=== PATIENT | male | born 1955 | race Caucasian/White ===

== ENCOUNTER → 2019-09-24 | Outpatient (CLI) | payer MEDICARE ==
--- NOTE | 2019-09-24 22:35 | PN ---
PROGRESS NOTE DATE OF SERVICE: 09/24/2019 This is a very pleasant 64-year-old gentleman who has a history of hyperlipidemia, gout, hypertension, coronary artery disease, atrial fibrillation, anticoagulated with Eliquis. He also has a history of obstructive sleep apnea and follows with Dr. Torres here in the sleep center. He has moderate to severe obstructive sleep apnea with an AHI of 27, worse during REM sleep. He was last seen in May 2015 at which time he was given a loaner BiPAP machine by Dr. Torres. The settings were programmed at 14/10 cm of water. He was given an AirFit P10 large mask with chin strap and was encouraged regarding weight loss. He has been doing fairly well over the past 5 years. However, approximately 1 month ago his BiPAP machine broke. They had taken it to [facility] and was evaluated and was told the mother port was broken and there was no way to repair it. He is seen here today hoping to get a new one ordered. He is now 64 years old and on Medicare. He has lost weight since the initial evaluation. He has been as high as 443 pounds and is weighing 341 pounds today. In the interim, he had undergone 2 coronary stent placements. He had been tolerating the BiPAP mask quite well and was quite compliant with it and is feeling he needs to get one as soon as possible. PHYSICAL EXAM: A pleasant 64-year-old gentleman, alert, oriented, no acute distress. Vital signs revealed blood pressure 137/88, heart rate 106, respirations 16, temperature is 98.3. He is 98% O2 saturation on room air. He is 5 feet 7 inches tall. He weighs 341 pounds. Neck circumference is 20 inches. BMI is 62.6. Current [place] Sleepiness Scale is score of 8. His head is normocephalic. Sclerae anicteric. There is crowding in the posterior pharynx. His neck is short, supple. Trachea midline. His lungs are clear anterior and posteriorly. Heart is regular S1, S2. Abdomen is obese, soft, nontender. Bowel sounds are present. There is trace peripheral edema. No clubbing. No cyanosis. Peripheral pulses are intact. CURRENT MEDICATIONS: Include omeprazole 40 mg daily, Coreg 12.5 mg b.i.d., Imdur 30 mg daily, loratadine 10 mg daily, simvastatin 40 mg daily, allopurinol 300 mg daily, Plavix 75 mg daily, Eliquis 5 mg twice daily. IMPRESSION: 1. Obstructive sleep apnea with an apnea-hypopnea index of 21, worse during REM, successfully treated with BiPAP 14/10 cm of water. 2. Morbid obesity. Current weight 341 pounds with a BMI of 62.6. 3. Coronary artery disease with previous stent placement. 4. Hyperlipidemia. 5. Gout. 6. Hypertension. 7. Chronic obstructive pulmonary disease. 8. Asthma. PLAN: The patient's case was reviewed and discussed with Dr. Torres. The patient did have a previous sleep study and is tolerating the BiPAP at a pressure of 14/10 cm of water well. We will attempt to order him a new BiPAP machine in the hopes that he will remain compliant and able to continue on the device. We will plan for the same current studies. He is again educated regarding the importance of weight loss and will follow up with Dr. Torres in the Sleep Center as scheduled. I, the cosigning physician, performed a history and physical examination on the patient. Lung sounds are clear. O2 saturation 98% on room air. I discussed the assessment and plan of care with my nurse practitioner, Daya Chand. I attest to the above progress note as dictated by her. MMODL / IJN: [id number] /
== END | disposition home or self-care (01) ==
LOC: SLEEP 14:44
PROVIDERS: ATTEND Internal Medicine Critical Care Medicine
DX: G47.33 Obstructive sleep apnea (adult) (pediatric) (principal); E66.01 Morbid (severe) obesity due to excess calories; I25.10 Atherosclerotic heart disease of native coronary artery without angina pectoris; E78.5 Hyperlipidemia, unspecified; M10.9 Gout, unspecified; I10 Essential (primary) hypertension; J44.9 Chronic obstructive pulmonary disease, unspecified; J45.909 Unspecified asthma, uncomplicated; Z68.44 Body mass index [BMI] 60.0-69.9, adult; Z99.89 Dependence on other enabling machines and devices; Z79.01 Long term (current) use of anticoagulants
CPT/HCPCS: 99211

== ENCOUNTER → 2020-03-03 | Outpatient (CLI) | payer MEDICARE ==
--- NOTE | 2020-03-03 15:15 | XR ---
Lumbar spine HISTORY: M 54.16 3 views the lumbar spine There is multilevel spondylosis. Loss of disc height is present at the intervertebral levels. Scleros is present in the posterior elements. Lumbar vertebral bodies show preserved height, alignment, bone mineralization. Vascular calcifications present in the aortoiliac distribution. Metallic coils are al so present on the frontal view. IMPRESSION: Degenerative disc disease and facet arthropathy.
== END | disposition home or self-care (01) ==
LOC: RADXRMAIN 13:18
PROVIDERS: ATTEND Family Medicine
DX: M51.16 Intervertebral disc disorders with radiculopathy, lumbar region (principal); M47.26 Other spondylosis with radiculopathy, lumbar region
CPT/HCPCS: 72100

== ENCOUNTER 2021-11-03 12:41 | Emergency (ER) | payer MEDICARE, BC ==
[2021-11-03] MEDS ORDERED: ONDANSETRON 4 MG/2 ML VIAL IVP STA ×2 (13:27→14:22)
[2021-11-03] MEDS ORDERED: PANTOPRAZOLE 40 MG/10 ML VIAL IVP STA (13:27)
[2021-11-03] MEDS ORDERED: SODIUM CHLORIDE 0.9% 1,000 ML IV ONE (13:27)
--- NOTE | 2021-11-03 13:30 | ED ---
General Adult HPI - General Chief complaint: Nausea/Vomiting/Diarrhea Stated complaint: vomiting Time Seen by Provider: 11/03/21 12:45 Source: patient, family, RN notes reviewed, old records reviewed Mode of arrival: ambulatory - History of Present Illness Initial comments: This is a 66-year-old male who presents emergency department for vomiting. Patient states she started vomiting snf through breakfast. Patient denies any abdominal pain. Patient states he has heartburn abnormalities been vomiting. Patient denies any difficulty breathing shortness of breath per pat ient denies any fever chills or cough per patient denies any headache patient denies numbness weakness. Patient denies any back pain. Patient denies any dysuria hematuria urinary frequency. Patient states remains nauseated. - Related Data Home Medications Medication Instructions Recorded Confirmed Albuterol Nebulized [Ventolin 2.5 mg INHALATION RT-Q4H PRN 11/03/21 11/03/21 Nebulized] Amitriptyline HCl 25 - 50 mg PO HS 11/03/21 11/03/21 Apixaban [Eliquis] 5 mg PO BID 11/03/21 11/03/21 Carvedilol [Coreg] 12.5 mg PO BID 11/03/21 11/03/21 Colchicine [Mitigare] 0.6 mg PO BID PRN 11/03/21 11/03/21 Isosorbide Mononitrate ER [Imdur] 30 mg PO DAILY 11/03/21 11/03/21 Loratadine 10 mg PO DAILY 11/03/21 11/03/21 Nitroglycerin Sl Tabs [Nitrostat] 0.4 mg SUBLINGUAL Q5M PRN 11/03/21 11/03/21 Pantoprazole Sodium [Protonix] 40 mg PO DAILY 11/03/21 11/03/21 Sertraline HCl [Zoloft] 25 mg PO DAILY 11/03/21 11/03/21 Simvastatin [Zocor] 40 mg PO HS 11/03/21 11/03/21 allopurinoL [Zyloprim] 300 mg PO HS 11/03/21 11/03/21 traMADol HCL [Ultram] 50 - 100 mg PO Q6HR PRN 11/03/21 11/03/21 Allergies Allergy/AdvReac Type Severity Reaction Status Date / Time Penicillins Allergy Rash/Hives/ Verified 11/03/21 14:09 nausea silver nitrate AdvReac Hallucinati Verified 11/03/21 14:08 ons Review of Systems ROS Statement: Those systems with pertinent positive or pertinent negative responses have been documented in the HPI. ROS Other: All systems not noted in ROS Statement are negative. Past Medical History Past Medical History: Atrial Fibrillation, Chest Pain / Angina, COPD, Hyperlipidemia, Hypertension, Myocardial Infarction ([place]), Sleep Apnea/CPAP/BIPAP History of Any Multi-Drug Resistant Organisms: None Reported Past Surgical History: Heart Catheterization With Stent, Hernia Repair Past Psychological History: No Psychological Hx Reported Smoking Status: Former smoker Past Alcohol Use History: None Reported Past Drug Use History: None Reported General Exam - General Exam Comments Initial Comments: GENERAL: Patient is well-developed and well-nourished. Patient is nontoxic and well- hydrated and is in mild distress. ENT: Neck is soft and supple. No significant lymphadenopathy is noted. Oropharynx is clear. Moist mucous membranes. Neck has full range of motion without eliciting any pain. EYES: The sclera were anicteric and conjunctiva were pink and moist. Extraocular movements were intact and pupils were equal round and reactive to light. Eyel ids were unremarkable. PULMONARY: Unlabored respirations. Good breath sounds bilaterally. No audible rales rhonchi or wheezing was noted. CARDIOVASCULAR: Patient is tachycardic and has an irregular rhythm. ABDOMEN: Soft and nontender with normal bowel sounds. SKIN: Skin is clear with no lesions or rashes and otherwise unremarkable. NEUROLOGIC: Patient is alert and oriented x3. Cranial nerves II through XII are grossly intact. Motor and sensory are also intact. Normal speech, volume and content. Symmetrical smile. MUSCULOSKELETAL: Normal extremities with adequate strength and full range of motion. LYMPHATICS: No significant lymphadenopathy is noted PSYCHIATRIC: Normal psychiatric evaluation. Course Vital Signs 11/03/21 11/03/21 12:42 14:40 Temperature 97.1 F L Pulse Rate 109 H 99 Respiratory 20 18 Rate Blood Pressure 141/93 O2 Sat by Pulse 98 98 Oximetry Medical Decision Making - Medical Decision Making EKG shows atrial fibrillation with rapid ventricular response at 140 bpm QRS is 92 QT interval 312 QTC is 380. Patient's EKG shows no ST segment elevation or depression. Patient was given 2 doses of Zofran emergency department was feeling considerably better. Patient was also given a liter of fluid. I back into reevaluate the patient has abdomen was nontender and he was no longer nauseated. Patient complains this time. - Lab Data Result diagrams: 11/03/21 13:35 11/03/21 13:35 Lab Results 11/03/21 11/03/21 Range/Units 13:35 13:35 WBC 8.6 (3.8-10.6) k/uL RBC 5.10 (4.30-5.90) m/uL Hgb 16.0 (13.0-17.5) gm/dL Hct 48.7 (39.0-53.0) % MCV 95.4 (80.0-100.0) fL MCH 31.4 (25.0-35.0) pg MCHC 32.9 (31.0-37.0) g/dL RDW 13.9 (11.5-15.5) % Plt Count 325 (150-450) k/uL MPV 7.1 Neutrophils % 80 % Lymphocytes % 12 % Monocytes % 5 % Eosinophils % 1 % Basophils % 0 % Neutrophils # 6.9 (1.3-7.7) k/uL Lymphocytes # 1.0 (1.0-4.8) k/uL Monocytes # 0.5 (0-1.0) k/uL Eosinophils # 0.1 (0-0.7) k/uL Basophils # 0.0 (0-0.2) k/uL Sodium 137 (137-145) mmol/L Potassium 4.6 (3.5-5.1) mmol/L Chloride 106 (98-107) mmol/L Carbon Dioxide 25 (22-30) mmol/L Anion Gap 6 mmol/L BUN 18 (9-20) mg/dL Creatinine 1.05 (0.66-1.25) mg/dL Est GFR (CKD-EPI)AfAm 84 (>60 ml/min/1.73 sqM) Est GFR (CKD-EPI)NonAf 73 (>60 ml/min/1.73 sqM) Glucose 99 (74-99) mg/dL Calcium 8.6 (8.4-10.2) mg/dL Total Bilirubin 1.2 (0.2-1.3) mg/dL AST 28 (17-59) U/L ALT 22 (4-49) U/L Alkaline Phosphatase 101 (38-126) U/L Total Protein 7.2 (6.3-8.2) g/dL Albumin 3.8 (3.5-5.0) g/dL Disposition Clinical Impression: Acute vomiting Disposition: HOME SELF-CARE Condition: Good Instructions (If sedation given, give patient instructions): Acute Nausea and Vomiting (ED) Additional Instructions: Patient should take Zofran as prescribed Is patient prescribed a controlled substance at d/c from ED?: No Referrals: Kain Maldonado MD [Primary Care Provider] - 1-2 days Time of Disposition: 14:44
[2021-11-03 14:00] LABS: Basophils % (A) 0 %; Eosinophils # (A) 0.1 k/uL (0-0.7); Eosinophils % (A) 1 %; HCT 48.7 % (39.0-53.0); Lymphocytes % (A) 12 %; MCH 31.4 pg (25.0-35.0); MCHC 32.9 g/dL (31.0-37.0); MCV 95.4 fL (80.0-100.0); Mean Platelet Volume 7.1; Monocytes # (A) 0.5 k/uL (0-1.0); Monocytes % (A) 5 %; Neutrophils # (A) 6.9 k/uL (1.3-7.7); Neutrophils % (A) 80 %; Platelet Count 325 k/uL (150-450); RDW 13.9 % (11.5-15.5); WBC 8.6 k/uL (3.8-10.6)
[2021-11-03 14:03] LABS: Albumin 3.8 g/dL (3.5-5.0); Calcium 8.6 mg/dL (8.4-10.2); Total Bilirubin 1.2 mg/dL (0.2-1.3); Total Protein 7.2 g/dL (6.3-8.2)
[2021-11-03 14:04] LABS: Potassium 4.6 mmol/L (3.5-5.1)
[2021-11-03 14:40] VITALS: RESP 18
[2021-11-03] MEDS ORDERED: ONDANSETRON 4 MG ODT STARTER PACK 2 TAB BTL PO STA (14:44)
[2021-11-03 14:58] VITALS: BP 132/93; PULSE 100; TEMP 98.4
== END 2021-11-03 14:57 | disposition home or self-care (01) ==
LOC: EC 12:41
DX: R11.10 Vomiting, unspecified (principal); I48.91 Unspecified atrial fibrillation; E78.5 Hyperlipidemia, unspecified; I10 Essential (primary) hypertension; J44.9 Chronic obstructive pulmonary disease, unspecified; I25.2 Old myocardial infarction; Z79.01 Long term (current) use of anticoagulants; Z88.0 Allergy status to penicillin; Z87.891 Personal history of nicotine dependence
CPT/HCPCS: 99284; 96374; 96375; 96376; 96361; 36415; 93005; 80053; 85025; J2405; S0119; C9113

== ENCOUNTER → 2022-12-23 | Outpatient (CLI) | payer MEDICARE ==
--- NOTE | 2022-12-24 01:23 | CA ---
Transthoracic Echo Report Name: Homer Trimble Age: 67 Gender: M : 1955 Exam Date: 12/23/2022 15:18 Exam Location: [facility] Ht (in): 68 Wt (lb): 350 Ordering Physician: Kain Maldonado MD Attending/Referring Phys: Abbey Alfredo M[employer]r Helper Procedure CPT: Indications: I31.39 OTHER PERICARDIAL EFFUSION (NONINFLAMMATORY Cardiac Hx: Technical Quality: Very technically difficult study Contrast 1: Lumason Total Dose (mL): 4 Contrast 2: Total Dose (mL): MEASUREMENTS (Male / Female) Normal Values 2D ECHO LV Diastolic Diameter PLAX 3.5 cm 4.2 - 5.9 / 3.9 - 5.3 cm LV Systolic Diameter PLAX 2.5 cm IVS Diastolic Thickness 1.5 cm 0.6 - 1.0 / 0.6 - 0.9 cm LVPW Diastolic Thickness 1.6 cm 0.6 - 1.0 / 0.6 - 0.9 cm LV Relative Wall Thickness 0.9 M-MODE Aortic Root Diameter MM 3.1 cm LA Systolic Diameter MM 3.8 cm LA Ao Ratio MM 1.2 DOPPLER LVOT Peak Velocity 73.9 cm/s LVOT Peak Gradient 2.2 mmHg LVOT Velocity Time Integral 13.5 cm TR Peak Velocity 222.3 cm/s TR Peak Gradient 19.8 mmHg Right Ventricular Systolic Press 24.5 mmHg FINDINGS Left Ventricle Moderately increased left ventricular wall thickness. Reduced global left ventricular systolic function. Left ventricular ejection fraction is estimated at 45-50 %. Right Ventricle Normal right ventricular size and function. Right ventricular systolic pressure within normal limits. Right Atrium Normal right atrial size. Left Atrium Normal left atrial size. Mitral Valve Mitral valve not well visualized. Mild mitral regurgitation. Aortic Valve Aortic valve not well visualized. No aortic valve stenosis or regurgitation. Tricuspid Valve Mild tricuspid regurgitation. Pulmonic Valve Pulmonic valve not well visualized. Pericardium Loculated pericardial effusion. Mild pericardial effusion near the right ventricle and atrium. A little bit more effusion noted near the left ventricle and left atrium. Aorta Normal size aortic root and proximal ascending aorta. CONCLUSIONS Moderate increased left ventricular wall thickness Left ventricular ejection fraction 45-50% RVSP 24 Mild mitral regurgitation Mild pericardial effusion without any diastolic collapse, no evidence of cardiac tamponade. Previewed by: Dr. Jose Montanez DO (Electronically Signed) Final Date: 24 Dec 2022 01:22
== END | disposition home or self-care (01) ==
LOC: RADECHMAIN 15:09
PROVIDERS: ATTEND Family Medicine
DX: I34.0 Nonrheumatic mitral (valve) insufficiency (principal); I31.39 Other pericardial effusion (noninflammatory)
CPT/HCPCS: C8929; Q9950; 93306

== ENCOUNTER → 2024-03-21 | Outpatient (CLI) | payer MEDICARE ==
[2024-05-03 11:54] LABS: Cryptosporidium Antigen Negative (Negative)
== END | disposition home or self-care (01) ==
LOC: LABPRL 07:23
PROVIDERS: ATTEND Nurse Practitioner Adult Health
DX: R19.7 Diarrhea, unspecified (principal)
CPT/HCPCS: 87045; 87046; 87328; 87329; 87338

== ENCOUNTER 2024-04-11 19:18 | Emergency (ER) | payer MEDICARE, OTHER ==
--- NOTE | 2024-04-11 19:35 | ED ---
Abdominal Pain HPI - General Source: patient, RN notes reviewed <Ivana Holloway - Last Filed: 04/11/24 19:33> - General Limitations: no limitations - History of Present Illness MD Complaint: abdominal pain -: month(s) Location: diffuse Radiation: none Migration to: periumbilical Severity: moderate Quality: cramping, aching Consistency: intermittent Improves With: nothing Worsens With: nothing Associated Symptoms: nausea, vomiting, constipation <Aba Parikh - Last Filed: 04/18/24 06:08> - General Stated Complaint: GI issues Time Seen by Provider: 04/11/24 19:30 - History of Present Illness Initial Comments: Quick [id number] male presents emergency department chief complaint of nausea, vomiting, abdominal pain that has been worsening over the past few days. Patient is followed with a office executive and is being evaluated for this. States that he has been feeling constipated with last full bowel movement being over 1 week ago. (Ivana Holloway) Patient is a 69-year-old man here to have evaluation of a constellation of symptoms that been going on since end of December/early January. The patient does see office executive Dr. Canas out of [facility]. He followed in January and 2 weeks ago was sent for gastric emptying study. They do not have the results of this yet. The patient complains of diffuse abdominal pains that move throughout the abdomen, sometimes all across the lower abdomen sometimes across the upper abdomen. He has vomiting daily. He has been told that he has achalasia and had been given Reglan in January but stopped taking this after 2 days due to side effects. Patient complains that he has had constipation going on for a number of days to a week with only small bowel movement. No weight loss reported (Aba Parikh) - Related Data Home Medications Medication Instructions Recorded Confirmed Albuterol Nebulized [Ventolin 2.5 mg INHALATION RT-Q4H PRN 11/03/21 11/03/21 Nebulized] Amitriptyline HCl 25 - 50 mg PO HS 11/03/21 11/03/21 Apixaban [Eliquis] 5 mg PO BID 11/03/21 11/03/21 Colchicine [Mitigare] 0.6 mg PO BID PRN 11/03/21 11/03/21 Isosorbide Mononitrate ER [Imdur] 30 mg PO DAILY 11/03/21 11/03/21 Loratadine 10 mg PO DAILY 11/03/21 11/03/21 Nitroglycerin Sl Tabs [Nitrostat] 0.4 mg SUBLINGUAL Q5M PRN 11/03/21 11/03/21 Pantoprazole Sodium [Protonix] 40 mg PO DAILY 11/03/21 11/03/21 Sertraline HCl [Zoloft] 25 mg PO DAILY 11/03/21 11/03/21 Simvastatin [Zocor] 40 mg PO HS 11/03/21 11/03/21 allopurinoL [Zyloprim] 300 mg PO HS 11/03/21 11/03/21 carvediloL [Coreg] 12.5 mg PO BID 11/03/21 11/03/21 traMADol HCL [Ultram] 50 - 100 mg PO Q6HR PRN 11/03/21 11/03/21 Allergies Allergy/AdvReac Type Severity Reaction Status Date / Time Penicillins Allergy Rash/Hives/ Verified 11/03/21 14:09 nausea atorvastatin [From Lipitor] AdvReac Unknown Verified 04/11/24 19:56 silver nitrate AdvReac Hallucinati Verified 11/03/21 14:08 ons Review of Systems ROS Other: All systems not noted in ROS Statement are negative. <Ivana Holloway - Last Filed: 04/11/24 19:33> ROS Other: All systems not noted in ROS Statement are negative. Constitutional: Denies: fever, chills Respiratory: Denies: cough, dyspnea Cardiovascular: Denies: chest pain, palpitations Gastrointestinal: Reports: abdominal pain, nausea, vomiting, constipation. Denies: hematemesis, melena, hematochezia Genitourinary: Denies: dysuria, hematuria Musculoskeletal: Denies: back pain Skin: Denies: rash Neurological: Denies: headache, weakness <Aba Parikh - Last Filed: 04/18/24 06:08> ROS Statement: Those systems with pertinent positive or pertinent negative responses have been documented in the HPI. Past Medical History Past Medical History: Atrial Fibrillation, Chest Pain / Angina, COPD, Hy perlipidemia, Hypertension, Myocardial Infarction ([place]), Sleep Apnea/CPAP/BIPAP History of Any Multi-Drug Resistant Organisms: None Reported Past Surgical History: Heart Catheterization With Stent, Hernia Repair Past Psychological History: No Psychological Hx Reported Smoking Status: Former smoker Past Alcohol Use History: None Reported Past Drug Use History: None Reported <Ivana Holloway - Last Filed: 04/11/24 19:33> General Exam <Ivana Holloway - Last Filed: 04/11/24 19:33> Limitations: no limitations General appearance: alert, in no apparent distress Head exam: Present: atraumatic, normocephalic Eye exam: Present: normal appearance. Absent: scleral icterus, conjunctival injection ENT exam: Present: normal oropharynx Neck exam: Present: normal inspection Respiratory exam: Present: normal lung sounds bilaterally. Absent: respiratory distress, wheezes, rales, rhonchi, stridor, accessory muscle use Cardiovascular Exam: Present: regular rate, normal rhythm, normal heart sounds. Absent: systolic murmur, diastolic murmur, rubs, gallop GI/Abdominal exam: Present: soft. Absent: distended, tenderness, guarding, rebound, rigid, mass Extremities exam: Present: normal inspection, normal capillary refill. Absent: pedal edema, calf tenderness Back exam: Present: normal inspection. Absent: CVA tenderness (R), CVA tenderness (L) Neurological exam: Present: alert Skin exam: Present: warm, dry, intact, normal color. Absent: rash <Aba Parikh - Last Filed: 04/18/24 06:08> - General Exam Comments Initial Comments: Visual Physical Exam Vital signs reviewed General: Well-appearing, nontoxic, no acute distress. Head: Normocephalic, atraumatic Eyes: PERRLA, EOMI ENT: Airway patent Chest: Nonlabored breathing Skin: No visual rash, normal skin tone Neuro: Alert and oriented 3 Musculoskeletal: No gross abnormalities (Jewel,Ivana) Course Vital Signs 04/11/24 04/11/24 04/12/24 19:51 23:59 02:36 Temperature 97.9 F 98.2 F 98.0 F Pulse Rate 111 H 101 H 100 Respiratory 20 18 16 Rate Blood Pressure 90/56 140/87 114/80 O2 Sat by Pulse 99 98 99 Oximetry Medical Decision Making <Ivana Holloway - Last Filed: 04/11/24 19:33> - Lab Data Result diagrams: 04/11/24 22:54 04/11/24 22:54 <Aba Parikh - Last Filed: 04/18/24 06:08> - Medical Decision Making I completed the quick note portion of this chart signed Ivana Holloway PA-C (Ivana Holloway) The patient had CT scan of the abdomen and pelvis that I interpreted to show presence of achalasia, with the esophagus being filled with food material. Was pt. sent in by a medical professional or institution ([facility], [employer], urgent care, hospital, or usp...) When possible be specific @ -[No] Did you speak to anyone other than the patient for history (EMS, parent, family, police, friend...)? What history was obtained from this source @ -[The patient's did give extensive history Did you review nursing and triage notes (agree or disagree)? Why? @ -[I reviewed and agree with nursing and triage notes] Were old charts reviewed (outside hosp., previous admission, EMS record, old EKG, old radiological studies, urgent care reports/EKG's, usp records)? Report findings @ -[No old charts were reviewed] Differential Diagnosis (chest pain, altered mental status, abdominal pain women, abdominal pain men, vaginal bleeding, weakness, fever, dyspnea, syncope, h eadache, dizziness, GI bleed, back pain, seizure, CVA, palpatations, mental health, musculoskeletal)? @ -[Differential Abdominal Pain Men: Appendicitis, cholecystitis, diverticulosis, ischemic bowel, pancreatitis, hepatitis, UTI, gastroenteritis, AAA, incarcerated hernia, bowel obstruction, constipation, inflammatory bowel, hepatitis, peptic ulcer disease, splenic infarction, perforated viscus, testicular torsion, this is not meant to be an all-inclusive list EKG interpreted by me (3pts min.). @ -[As above] X-rays interpreted by me (1pt min.). @ -[None done] CT interpreted by me (1pt min.). @ -[I interpreted as above U/S interpreted by me (1pt. min.). @ -[None done] What testing was considered but not performed or refused? (CT, X-rays, U/S, labs)? Why? @ -[None] What meds were considered but not given or refused? Why? @ -[None] Did you discuss the management of the patient with other professionals (professionals i.e. Dr., PA, [employer], lab, RT, psych nurse, social services designee, dock or pier laborer, everton acher, hearing officer, medical case manager)? Give summary @ -[No] Was smoking cessation discussed for >3mins.? @ -[No] Was critical care preformed (if so, how long)? @ -[No] Were there social determinants of health that impacted care today? How? (Homelessness, low income, unemployed, alcoholism, drug addiction, transportation, low edu. Level, literacy, decrease access to med. care, intermediate, rehab)? @ -[No] Was there de-escalation of care discussed even if they declined (Discuss DNR or withdrawal of care, Hospice)? DNR status @ -[No] What co-morbidities impacted this encounter? (DM, HTN, Smoking, COPD, CAD, Cancer, CVA, ARF, Chemo, Hep., AIDS, mental health diagnosis, sleep apnea, morbid obesity)? @ -[Achalasia Was patient admitted / discharged? Hospital course, mention meds given and route, prescriptions, significant lab abnormalities, going to OR and other pertinent info. @ -[Patient is 69-year-old man with history of achalasia. The patient does appear to have extensive food impaction associated with the achalasia. I discussed treatment options with the patient and his and was in fact going to transfer the patient to be seen by his office executive Dr. Shane jones and had started making arrangements when I was informed that they instead wanted to go home and follow-up in the clinic. This does seem acceptable as the patient currently not in distress and this is chronic condition. Discussed the appropriate follow-up as well as return parameters. Undiagnosed new problem with uncertain prognosis? @ -[No] Drug Therapy requiring intensive monitoring for toxicity (Heparin, Nitro, Insulin, Cardizem)? @ -[No] Were any procedures done? @ -[No] Diagnosis/symptom? @ -[Achalasia, acute on chronic Acute, or Chronic, or Acute on Chronic? @ -[Acute on chronic Uncomplicated (without systemic symptoms) or Complicated (systemic symptoms)? @ -[Uncomplicated Side effects of treatment? @ -[No] Exacerbation, Progression, or Severe Exacerbation? @ -[No] Poses a threat to life or bodily function? How? (Chest pain, [place], [place], pneumonia, PE, COPD, DKA, ARF, appy, cholecystitis, CVA, Diverticulitis, Homicidal, Suicidal, threat to staff... and all critical care pts) @ -[No] (Aba aPrikh) - Lab Data Lab Results 04/11/24 04/11/24 04/11/24 Range/Units 22:54 22:54 22:54 WBC 8.0 (3.8-10.6) k/uL RBC 4.33 (4.30-5.90) m/uL Hgb 13.5 (13.0-17.5) gm/dL Hct 40.5 (39.0-53.0) % MCV 93.7 (80.0-100.0) fL MCH 31.2 (25.0-35.0) pg MCHC 33.4 (31.0-37.0) g/dL RDW 15.0 (11.5-15.5) % Plt Count 272 (150-450) k/uL MPV 7.8 Neutrophils % 71 % Lymphocytes % 14 % Monocytes % 11 % Eosinophils % 1 % Basophils % 0 % Neutrophils # 5.7 (1.3-7.7) k/uL Lymphocytes # 1.1 (1.0-4.8) k/uL Monocytes # 0.9 (0-1.0) k/uL Eosinophils # 0.1 (0-0.7) k/uL Basophils # 0.0 (0-0.2) k/uL Sodium 139 (137-145) mmol/L Potassium 3.8 (3.5-5.1) mmol/L Chloride 105 (98-107) mmol/L Carbon Dioxide 25 (22-30) mmol/L Anion Gap 9 mmol/L BUN 14 (9-20) mg/dL Creatinine 1.35 H (0.66-1.25) mg/dL Est GFR (CKD-EPI)AfAm 61 (>60 ml/min/1.73 sqM) Est GFR (CKD-EPI)NonAf 52 (>60 ml/min/1.73 sqM) Glucose 81 (74-99) mg/dL Plasma Lactic Acid Syed 1.7 (0.7-2.0) mmol/L Calcium 9.0 (8.4-10.2) mg/dL Total Bilirubin 0.8 (0.2-1.3) mg/dL AST 25 (17-59) U/L ALT 14 (4-49) U/L Alkaline Phosphatase 145 H (38-126) U/L Troponin I (0.000-0.034) ng/mL Total Protein 6.3 (6.3-8.2) g/dL Albumin 3.4 L (3.5-5.0) g/dL Urine Color Urine Appearance (Clear) Urine pH (5.0-8.0) Ur Specific [place] (1.001-1.035) Urine Protein (Negative) Urine Glucose (UA) (Negative) Urine Ketones (Negative) Urine Blood (Negative) Urine Nitrite (Negative) Urine Bilirubin (Negative) Urine Urobilinogen (<2.0) mg/dL Ur Leukocyte Esterase (Negative) Urine RBC (0-5) /hpf Urine WBC (0-5) /hpf Ur Squamous Epith Cells (0-4) /hpf Amorphous Sediment (None) /hpf Urine Bacteria (None) /hpf Hyaline Casts (0-2) /lpf Urine Mucus (None) /hpf 04/11/24 04/11/24 Range/Units 22:54 23:22 WBC (3.8-10.6) k/uL RBC (4.30-5.90) m/uL Hgb (13.0-17.5) gm/dL Hct (39.0-53.0) % MCV (80.0-100.0) fL MCH (25.0-35.0) pg MCHC (31.0-37.0) g/dL RDW (11.5-15.5) % Plt Count (150-450) k/uL MPV Neutrophils % % Lymphocytes % % Monocytes % % Eosinophils % % Basophils % % Neutrophils # (1.3-7.7) k/uL Lymphocytes # (1.0-4.8) k/uL Monocytes # (0-1.0) k/uL Eosinophils # (0-0.7) k/uL Basophils # (0-0.2) k/uL Sodium (137-145) mmol/L Potassium (3.5-5.1) mmol/L Chloride (98-107) mmol/L Carbon Dioxide (22-30) mmol/L Anion Gap mmol/L BUN (9-20) mg/dL Creatinine (0.66-1.25) mg/dL Est GFR (CKD-EPI)AfAm (>60 ml/min/1.73 sqM) Est GFR (CKD-EPI)NonAf (>60 ml/min/1.73 sqM) Glucose (74-99) mg/dL Plasma Lactic Acid Syed (0.7-2.0) mmol/L Calcium (8.4-10.2) mg/dL Total Bilirubin (0.2-1.3) mg/dL AST (17-59) U/L ALT (4-49) U/L Alkaline Phosphatase (38-126) U/L Troponin I <0.012 (0.000-0.034) ng/mL Total Protein (6.3-8.2) g/dL Albumin (3.5-5.0) g/dL Urine Color Yellow Urine Appearance Cloudy (Clear) Urine pH 6.0 (5.0-8.0) Ur Specific [place] 1.027 (1.001-1.035) Urine Protein 1+ H (Negative) Urine Glucose (UA) Negative (Negative) Urine Ketones Trace H (Negative) Urine Blood Negative (Negative) Urine Nitrite Negative (Negative) Urine Bilirubin Negative (Negative) Urine Urobilinogen <2.0 (<2.0) mg/dL Ur Leukocyte Esterase Negative (Negative) Urine RBC 2 (0-5) /hpf Urine WBC 2 (0-5) /hpf Ur Squamous Epith Cells 1 (0-4) /hpf Amorphous Sediment Occasional H (None) /hpf Urine Bacteria Occasional H (None) /hpf Hyaline Casts 53 H (0-2) /lpf Urine Mucus Many H (None) /hpf Disposition <Ivana oHlloway - Last Filed: 04/11/24 19:33> Is patient prescribed a controlled substance at d/c from ED?: No <Aba Parikh - Last Filed: 04/18/24 06:08> Clinical Impression: Achalasia Disposition: HOME SELF-CARE Instructions (If sedation given, give patient instructions): Acute Nausea and Vomiting (DC) Referrals: Kain Maldonado MD [Primary Care Provider] - 1-2 days Fernando Canas DO [REFERRING] - 1-2 days
[2024-04-11 23:08] LABS: Basophils % (A) 0 %; Eosinophils # (A) 0.1 k/uL (0-0.7); Eosinophils % (A) 1 %; HCT 40.5 % (39.0-53.0); HGB 13.5 gm/dL (13.0-17.5); Lymphocytes # (A) 1.1 k/uL (1.0-4.8); Lymphocytes % (A) 14 %; MCH 31.2 pg (25.0-35.0); MCHC 33.4 g/dL (31.0-37.0); MCV 93.7 fL (80.0-100.0); Mean Platelet Volume 7.8; Monocytes # (A) 0.9 k/uL (0-1.0); Monocytes % (A) 11 %; Neutrophils # (A) 5.7 k/uL (1.3-7.7); Neutrophils % (A) 71 %; Platelet Count 272 k/uL (150-450); RBC 4.33 m/uL (4.30-5.90)
[2024-04-11 23:16] LABS: ALT 14 U/L (4-49); AST 25 U/L (17-59); African American GFR (CKD) 61 (>60 ml/min/1.73 sqM); Albumin 3.4 g/dL (3.5-5.0); Alkaline Phosphatase 145 U/L (38-126); Anion Gap 9 mmol/L; Blood Urea Nitrogen 14 mg/dL (9-20); Carbon Dioxide 25 mmol/L (22-30); Chloride 105 mmol/L (98-107); Glucose 81 mg/dL (74-99); Non-African American GFR(CKD) 52 (>60 ml/min/1.73 sqM); Potassium 3.8 mmol/L (3.5-5.1); Sodium 139 mmol/L (137-145); Total Bilirubin 0.8 mg/dL (0.2-1.3); Total Protein 6.3 g/dL (6.3-8.2)
[2024-04-11 23:55] LABS: Amorphous Sediment,Urine Occasional /hpf; Appearance,Urine Cloudy (Clear); Bacteria,Urine Occasional /hpf; Bilirubin,Urine Negative (Negative); Blood,Urine Negative (Negative); Color,Urine Yellow; Glucose,Urine (UA) Negative (Negative); Hyaline Casts,Urine 53 /lpf (0-2); Ketones,Urine Trace (Negative); Leukocyte Esterase,Urine Negative (Negative); Mucus,Urine Many /hpf; Nitrite,Urine Negative (Negative); Protein,Urine 1+ (Negative); RBC,Urine 2 /hpf (0-5); Specific Gravity,Urine 1.027 (1.001-1.035); Squamous Epithelial Cell,Urine 1 /hpf (0-4); Urobilinogen,Urine <2.0 mg/dL (<2.0); WBC,Urine 2 /hpf (0-5)
--- NOTE | 2024-04-12 00:34 | CT ---
EXAMINATION TYPE: CT abdomen pelvis wo con DATE OF EXAM: 04/12/2024 HISTORY: abd pain diffuse with nausea and vomiting CT DLP: 1896 mGycm. Automated Exposure Control for Dose Reduction was Utilized. TECHNIQUE: CT scan of the abdomen and pelvis is performed without oral or IV contrast. COMPARISON: NONE FINDINGS: Within the limitations of a non-contrast study, the following observations are made. LUNG BASES: Gastric pull-up is partially imaged. There is stent suspected in the RCA. LIVER/GB: No significant abnormality is appreciated. PANCREAS: No significant abnormality is seen. SPLEEN: No significant abnormality is seen. ADRENALS: No significant abnormality is seen. KIDNEYS: No renal stones or hydronephrosis seen bilaterally. BOWEL: No abnormal small or large bowel dilatation. GENITAL ORGANS: Prostate gland mildly enlarged in size. LYMPH NODES: No greater than 1cm abdominal or pelvic lymph nodes are appreciated. OSSEOUS STRUCTURES: No significant abnormality is seen. OTHER: Prior wall hernia repair surgery or mesh in the anterior abdomen. IMPRESSION: No bowel obstruction. No acute finding identified on noncontrast CT.
[2024-04-12 02:37] VITALS: BP 114/80; PULSE 100; RESP 16; TEMP 98
== END 2024-04-12 02:40 | disposition home or self-care (01) ==
LOC: EC 19:18
CPT/HCPCS: 36415; 74176; 80053; 81001; 83605; 84484; 85025; 93005; 99284

== ENCOUNTER 2024-05-03 13:39 | Emergency (ER) | payer MEDICARE ==
--- NOTE | 2024-05-03 14:19 | ED ---
Nausea/Vomiting/Diarrhea HPI - General Chief complaint: Nausea/Vomiting/Diarrhea Stated complaint: Nausea and vomiting Time Seen by Provider: 05/03/24 13:48 Source: patient, RN notes reviewed Mode of arrival: ambulatory Limitations: no limitations - History of Present Illness Initial comments: This is a 69-year-old male who presents to the emergency department for nausea and vomiting. Patient's states that has been dealing with nausea and vomiting over the last couple of months. He has been following with gastroenterology at [facility]. He was diagnosed with achalasia. Over the last couple of months he had been hospitalized twice at [facility] with GI related infections and treated with antibiotics. States that he seems to impro ve each time, however symptoms then return. He has not been eating much as he has been afraid he is going to vomit. Family was unhappy with the care at [facility] and subsequently made an appoint with Dr. Decker, which is scheduled for next month. He saw his primary care provider today regarding his symptoms and they were concerned that he is very dehydrated and he was sent to the emergency department for IV fluids. Family states that he has been hallucinating slightly over the past couple of days and believes it to be related to dehydration. He has generalized abdominal discomfort as well as problems with recurrent diarrhea. Reports having 1-5 bowel movements a day. MD complaint: nausea, vomiting, diarrhea, abdominal pain - Related Data Home Medications Medication Instructions Recorded Confirmed Albuterol Nebulized [Ventolin 2.5 mg INHALATION RT-Q4H PRN 11/03/21 11/03/21 Nebulized] Amitriptyline HCl 25 - 50 mg PO HS 11/03/21 11/03/21 Apixaban [Eliquis] 5 mg PO BID 11/03/21 11/03/21 Colchicine [Mitigare] 0.6 mg PO BID PRN 11/03/21 11/03/21 Isosorbide Mononitrate ER [Imdur] 30 mg PO DAILY 11/03/21 11/03/21 Loratadine 10 mg PO DAILY 11/03/21 11/03/21 Nitroglycerin Sl Tabs [Nitrostat] 0.4 mg SUBLINGUAL Q5M PRN 11/03/21 11/03/21 Pantoprazole Sodium [Protonix] 40 mg PO DAILY 11/03/21 11/03/21 Sertraline HCl [Zoloft] 25 mg PO DAILY 11/03/21 11/03/21 Simvastatin [Zocor] 40 mg PO HS 11/03/21 11/03/21 allopurinoL [Zyloprim] 300 mg PO HS 11/03/21 11/03/21 carvediloL [Coreg] 12.5 mg PO BID 11/03/21 11/03/21 traMADol HCL [Ultram] 50 - 100 mg PO Q6HR PRN 11/03/21 11/03/21 Previous Rx's Medication Instructions Recorded Ondansetron Odt [Zofran Odt] 4 mg PO Q8HR PRN #30 tab 05/03/24 Allergies Allergy/AdvReac Type Severity Reaction Status Date / Time Penicillins Allergy Rash/Hives/ Verified 05/03/24 13:47 nausea atorvastatin [From Lipitor] AdvReac Unknown Verified 05/03/24 13:47 silver nitrate AdvReac Hallucinati Verified 05/03/24 13:47 ons Review of Systems ROS Statement: Those systems with pertinent positive or pertinent negative responses have been documented in the HPI. ROS Other: All systems not noted in ROS Statement are negative. Past Medical History Past Medical History: Atrial Fibrillation, Chest Pain / Angina, COPD, Hyperlipidemia, Hypertension, Myocardial Infarction ([place]), Sleep Apnea/CPAP/BIPAP History of Any Multi-Drug Resistant Organisms: None Reported Past Surgical History: Heart Catheterization With Stent, Hernia Repair Past Psychological History: No Psychological Hx Reported Smoking Status: Former smoker Past Alcohol Use History: None Reported Past Drug Use History: None Reported General Exam Limitations: no limitations General appearance: alert, in no apparent distress Head exam: Present: atraumatic, normocephalic, normal inspection Respiratory exam: Present: normal lung sounds bilaterally. Absent: respiratory distress, wheezes, rales, rhonchi, stridor Cardiovascular Exam: Present: tachycardia, irregular rhythm GI/Abdominal exam: Present: soft, normal bowel sounds. Absent: distended, tenderness, guarding, rebound, rigid Neurological exam: Present: alert, oriented X3, CN II-XII intact Psychiatric exam: Present: normal affect, normal mood Skin exam: Present: warm, dry, intact, normal color. Absent: rash Course Vital Signs 05/03/24 05/03/24 05/03/24 13:44 15:22 16:18 Temperature 97.6 F 98.4 F Pulse Rate 132 H 122 H 112 H Respiratory 20 20 16 Rate Blood Pressure 101/75 104/91 118/89 O2 Sat by Pulse 97 97 97 Oximetry 05/03/24 17:16 Temperature 98.6 F Pulse Rate 110 H Respiratory 18 Rate Blood Pressure 117/89 O2 Sat by Pulse 99 Oximetry Medical Decision Making - Medical Decision Making This is a 69 year old male who presents to the emergency department for nausea and vomiting. Was pt. sent in by a medical professional or institution? @ -His PCP Did you speak to anyone other than the patient for history? @ -No Did you review nursing and triage notes? @ -Yes, and I agree, it is accurate with regards to the patient's symptoms. Were old charts reviewed? @ -No Differential Diagnosis? @ -Differential Nausea and Vomiting: Gastroenteritis, cholecystitis, appendicitis, pancreatitis, migraine, benign positional vertigo, food borne illness, pyelonephritis, irritable bowel syndrome, influenza, Covid, GERD, incarcerated hernia, intestinal obstruction, this is not meant to be an all-inclusive list. EKG interpreted by me (3pts min.)? @ -EKG interpreted by me demonstrating the following: A-fib with RVR. Ventricular rate 122 bpm, QRS duration 112 ms, QTc 432 ms. X-rays interpreted by me (1pt min.)? @ -Chest x-ray obtained. My interpretation identifies patchy bilateral lower lung densities CT interpreted by me (1pt min.)? @ -Not obtained U/S interpreted by me (1pt. min.)? @ -Not obtained What testing was considered but not performed? (CT, X-rays, U/S, labs)? Why? @ -None What meds were considered but not given? Why? @ -None Did you discuss the management of the patient with other professionals? @ -No Did you reconcile home meds? @ -No Was smoking cessation discussed for >3mins.? @ -No Was critical care preformed (if so, how long)? @ -No Were there social determinants of health that impacted care today? How? (Homelessness, low income, unemployed, alcoholism, drug addiction, transportation, low edu. Level, literacy, decrease access to med. care, half-way, rehab)? @ -No Was there de-escalation of care discussed even if they declined? (Discuss DNR or withdrawal of care, Hospice)? @ -No What co-morbidities impacted this encounter? (DM, HTN, Smoking, COPD, CAD, Cancer, CVA, Hep., AIDS, mental health diagnosis, sleep apnea, morbid obesity)? @ -Achalasia, A-fib, CAD, COPD, CHF Was patient admitted / discharged? @ -Discharged. Lab work demonstrates an elevated BNP of 4620. Troponin n egative. Renal function within normal limits. Urinalysis negative for signs of infection. Chest x-ray reveals the gastric pull-through distended with ingested debris. They also advised that given the patchy bilateral lower lung densities there should be correlation to exclude any early infectious or aspiration pneumonitis. There is also a possible trace effusion on the lateral view versus pleural-parenchymal scarring and they advised correlation to exclude mild pulmonary vascular congestion. Patient has had intermittent shortness of breath over the last month but otherwise denies any coughing, congestion, or chest pain to suggest pneumonia. States that he was also recently treated for pneumonia. Given the questionable finding and patient not being particularly symptomatic, will avoid treatment at this time and have him get follow-up imaging with his primary care provider. He was treated with a liter bolus of IV fluids and Zofran with improvement in symptoms. He was tolerating oral intake afterwards and felt comfortable discharge home at that point. Refill on Zofran provided, which is usually effective for him at home. He will follow-up with GI as scheduled and with his primary care provider in the next couple of days. Patient discharged home in stable condition. Case discussed with ED attending Dr. Garcia. Return precautions reviewed in depth, the patient is instructed to return to the emergency department with any new, worsening, or concerning symptoms. Patient verbalized understanding. Undiagnosed new problem with uncertain prognosis? @ -None Drug Therapy requiring intensive monitoring for toxicity (Heparin, Nitro, Insulin, Cardizem)? @ -None Were any procedures done? @ -None Diagnosis/symptom? @ -Nausea and vomiting Acute, or Chronic, or Acute on Chronic? @ -Acute Uncomplicated (without systemic symptoms) or Complicated (systemic symptoms)? @ -Uncomplicated Side effects of treatment? @ -None Exacerbation, Progression, or Severe Exacerbation] @ -Not applicable Poses a threat to life or bodily function? @ -No - Lab Data Result diagrams: 05/03/24 14:30 05/03/24 14:30 Lab Results 05/03/24 05/03/24 05/03/24 Range/Units 14:30 14:30 14:30 WBC 9.8 (3.8-10.6) k/uL RBC 4.17 L (4.30-5.90) m/uL Hgb 13.0 (13.0-17.5) gm/dL Hct 39.5 (39.0-53.0) % MCV 94.6 (80.0-100.0) fL MCH 31.3 (25.0-35.0) pg MCHC 33.0 (31.0-37.0) g/dL RDW 15.7 H (11.5-15.5) % Plt Count 329 (150-450) k/uL MPV 8.5 Neutrophils % 79 % Lymphocytes % 10 % Monocytes % 8 % Eosinophils % 1 % Basophils % 0 % Neutrophils # 7.8 H (1.3-7.7) k/uL Lymphocytes # 0.9 L (1.0-4.8) k/uL Monocytes # 0.8 (0-1.0) k/uL Eosinophils # 0.1 (0-0.7) k/uL Basophils # 0.0 (0-0.2) k/uL Sodium 138 (137-145) mmol/L Potassium 4.1 (3.5-5.1) mmol/L Chloride 108 H (98-107) mmol/L Carbon Dioxide 25 (22-30) mmol/L Anion Gap 5 mmol/L BUN 11 (9-20) mg/dL Creatinine 0.95 (0.66-1.25) mg/dL Est GFR (CKD-EPI)AfAm >90 (>60 ml/min/1.73 sqM) Est GFR (CKD-EPI)NonAf 81 (>60 ml/min/1.73 sqM) Glucose 96 (74-99) mg/dL Plasma Lactic Acid Syed (0.7-2.0) mmol/L Calcium 8.7 (8.4-10.2) mg/dL Phosphorus 2.5 (2.5-4.5) mg/dL Magnesium 2.2 (1.6-2.3) mg/dL Total Bilirubin 0.9 (0.2-1.3) mg/dL AST 24 (17-59) U/L ALT 13 (4-49) U/L Alkaline Phosphatase 182 H (38-126) U/L Troponin I (0.000-0.034) ng/mL NT-Pro-B Natriuret Pep 4620 pg/mL Total Protein 6.0 L (6.3-8.2) g/dL Albumin 3.1 L (3.5-5.0) g/dL Amylase 36 (30-110) U/L Lipase 105 (23-300) U/L Urine Color Yellow Urine Appearance Cloudy (Clear) Urine pH 8.5 H (5.0-8.0) Ur Specific Yeso 1.025 (1.001-1.035) Urine Protein 1+ H (Negative) Urine Glucose (UA) Negative (Negative) Urine Ketones Negative (Negative) Urine Blood Negative (Negative) Urine Nitrite Negative (Negative) Urine Bilirubin Negative (Negative) Urine Urobilinogen <2.0 (<2.0) mg/dL Ur Leukocyte Esterase Negative (Negative) Urine RBC 1 (0-5) /hpf Urine WBC 3 (0-5) /hpf Ur Squamous Epith Cells <1 (0-4) /hpf Hyaline Casts 3 H (0-2) /lpf Urine Mucus Many H (None) /hpf 05/03/24 05/03/24 Range/Units 14:30 14:30 WBC (3.8-10.6) k/uL RBC (4.30-5.90) m/uL Hgb (13.0-17.5) gm/dL Hct (39.0-53.0) % MCV (80.0-100.0) fL MCH (25.0-35.0) pg MCHC (31.0-37.0) g/dL RDW (11.5-15.5) % Plt Count (150-450) k/uL MPV Neutrophils % % Lymphocytes % % Monocytes % % Eosinophils % % Basophils % % Neutrophils # (1.3-7.7) k/uL Lymphocytes # (1.0-4.8) k/uL Monocytes # (0-1.0) k/uL Eosinophils # (0-0.7) k/uL Basophils # (0-0.2) k/uL Sodium (137-145) mmol/L Potassium (3.5-5.1) mmol/L Chloride (98-107) mmol/L Carbon Dioxide (22-30) mmol/L Anion Gap mmol/L BUN (9-20) mg/dL Creatinine (0.66-1.25) mg/dL Est GFR (CKD-EPI)AfAm (>60 ml/min/1.73 sqM) Est GFR (CKD-EPI)NonAf (>60 ml/min/1.73 sqM) Glucose (74-99) mg/dL Plasma Lactic Acid Syed 1.9 (0.7-2.0) mmol/L Calcium (8.4-10.2) mg/dL Phosphorus (2.5-4.5) mg/dL Magnesium (1.6-2.3) mg/dL Total Bilirubin (0.2-1.3) mg/dL AST (17-59) U/L ALT (4-49) U/L Alkaline Phosphatase (38-126) U/L Troponin I <0.012 (0.000-0.034) ng/mL NT-Pro-B Natriuret Pep pg/mL Total Protein (6.3-8.2) g/dL Albumin (3.5-5.0) g/dL Amylase (30-110) U/L Lipase (23-300) U/L Urine Color Urine Appearance (Clear) Urine pH (5.0-8.0) Ur Specific Yeso (1.001-1.035) Urine Protein (Negative) Urine Glucose (UA) (Negative) Urine Ketones (Negative) Urine Blood (Negative) Urine Nitrite (Negative) Urine Bilirubin (Negative) Urine Urobilinogen (<2.0) mg/dL Ur Leukocyte Esterase (Negative) Urine RBC (0-5) /hpf Urine WBC (0-5) /hpf Ur Squamous Epith Cells (0-4) /hpf Hyaline Casts (0-2) /lpf Urine Mucus (None) /hpf - Radiology Data Radiology results: report reviewed, image reviewed Disposition Clinical Impression: Nausea and vomiting, Dehydration Disposition: HOME SELF-CARE Instructions (If sedation given, give patient instructions): Acute Nausea and Vomiting (ED) Additional Instructions: Return to the emergency department with any new, worsening, or concerning symptoms. You can take the Zofran up to every 8 hours as needed for nausea and vomiting. Follow up with your primary care provider in 1-2 days. Prescriptions: Ondansetron Odt [Zofran Odt] 4 mg PO Q8HR PRN #30 tab PRN Reason: Nausea And Vomiting Is patient prescribed a controlled substance at d/c from ED?: No Referrals: Kain Maldonado MD [Primary Care Provider] - 1-2 days Time of Disposition: 16:50
[2024-05-03 14:43] LABS: Basophils % (A) 0 %; Eosinophils # (A) 0.1 k/uL (0-0.7); Eosinophils % (A) 1 %; HCT 39.5 % (39.0-53.0); Lymphocytes # (A) 0.9 k/uL (1.0-4.8); Lymphocytes % (A) 10 %; MCH 31.3 pg (25.0-35.0); MCV 94.6 fL (80.0-100.0); Mean Platelet Volume 8.5; Monocytes # (A) 0.8 k/uL (0-1.0); Monocytes % (A) 8 %; Neutrophils # (A) 7.8 k/uL (1.3-7.7); Neutrophils % (A) 79 %; Platelet Count 329 k/uL (150-450); RBC 4.17 m/uL (4.30-5.90); RDW 15.7 % (11.5-15.5); WBC 9.8 k/uL (3.8-10.6)
[2024-05-03 14:56] LABS: ALT 13 U/L (4-49); AST 24 U/L (17-59); African American GFR (CKD) >90 (>60 ml/min/1.73 sqM); Albumin 3.1 g/dL (3.5-5.0); Alkaline Phosphatase 182 U/L (38-126); Amylase 36 U/L (30-110); Anion Gap 5 mmol/L; Blood Urea Nitrogen 11 mg/dL (9-20); Calcium 8.7 mg/dL (8.4-10.2); Carbon Dioxide 25 mmol/L (22-30); Chloride 108 mmol/L (98-107); Glucose 96 mg/dL (74-99); Lipase 105 U/L (23-300); Magnesium 2.2 mg/dL (1.6-2.3); Non-African American GFR(CKD) 81 (>60 ml/min/1.73 sqM); Phosphorus 2.5 mg/dL (2.5-4.5); Potassium 4.1 mmol/L (3.5-5.1); Sodium 138 mmol/L (137-145); Total Bilirubin 0.9 mg/dL (0.2-1.3)
--- NOTE | 2024-05-03 15:03 | XR ---
EXAMINATION TYPE: XR chest 2V DATE OF EXAM: 05/03/2024 COMPARISON: Correlation CT 02/05/2015 HISTORY: 69-year-old male shortness of breath, difficulty breathing TECHNIQUE: PA and lateral views FINDINGS: Volume loss in the right hemithorax. Patchy bilateral lower lung opacities. Fluid debris within the p atient's gastric pull-through projecting behind the mediastinum and right paratracheal region. The he art appears borderline in size. Background mild interstitial prominence. Possible trace effusions on the lateral view. IMPRESSION: 1. Patient with gastric pull-through distended with ingested debris. Given the patchy bilateral lower lung densities, correlate to exclude early infectious or aspiration pneumonitis. 2. Possible trace effusions on the lateral view versus pleural parenchymal scarring at the costophren ic angles. Correlate to exclude mild pulmonary vascular congestion. [facility], Workstation: [email or web address], 05/03/2024 3:01 PM
[2024-05-03 15:05] LABS: NT-Pro-B-Type Natriuretic Pept 4620 pg/mL
[2024-05-03] MEDS: SODIUM CHLORIDE 0.9% 1,000 ML IV STA (15:17)
[2024-05-03] MEDS: ONDANSETRON 4 MG/2 ML VIAL IVP STA (15:17)
[2024-05-03 15:33] LABS: Appearance,Urine Cloudy (Clear); Bilirubin,Urine Negative (Negative); Blood,Urine Negative (Negative); Color,Urine Yellow; Glucose,Urine (UA) Negative (Negative); Hyaline Casts,Urine 3 /lpf (0-2); Ketones,Urine Negative (Negative); Leukocyte Esterase,Urine Negative (Negative); Mucus,Urine Many /hpf; Nitrite,Urine Negative (Negative); PH, Urine 8.5 (5.0-8.0); Protein,Urine 1+ (Negative); RBC,Urine 1 /hpf (0-5); Specific Gravity,Urine 1.025 (1.001-1.035); Squamous Epithelial Cell,Urine <1 /hpf (0-4); Urobilinogen,Urine <2.0 mg/dL (<2.0); WBC,Urine 3 /hpf (0-5)
[2024-05-03 17:17] VITALS: BP 117/89; PULSE 110; RESP 18; TEMP 98.6
== END 2024-05-03 17:18 | disposition home or self-care (01) ==
LOC: EC 13:39
CPT/HCPCS: 36415; 71046; 80053; 81001; 82150; 83605; 83690; 83735; 83880; 84100; 84484; 85025; 93005; 96361; 96374; 99284

== ENCOUNTER → 2024-05-24 | Outpatient (CLI) | payer MEDICARE ==
--- NOTE | 2024-05-24 14:02 | CT ---
EXAMINATION TYPE: CT chest wo con CT DLP: 806 mGycm, Automated exposure control for dose reduction was used. DATE OF EXAM: 05/24/2024 1:45 PM COMPARISON: Chest radiograph 05/03/2024, CT chest 02/05/2015 CLINICAL INDICATION:Male, 69 years old with history of J69.0 PNEUMONITIS DUE TO INHALTION OF FOOD AND VOM; PHH, Pneumonitis due to inhalation of food and vomit, SOB, chest pain. TECHNIQUE: Multiple axial images were obtained through the chest without IV contrast. Lack of IV or o ral contrast limits evaluation of solid and hollow organ viscera. . Coronal and sagittal reformats re viewed. FINDINGS: LUNGS/ PLEURA: No pleural effusion or pneumothorax. Calcified granuloma within the left lower lobe. Right lung volume loss. Patchy groundglass opacities throughout the left lower lobe and right middle lobe and to a lesser degree the right lower lobe. AIRWAY: Patent and unremarkable.. HEART: Size within normal limits. No pericardial effusion. Moderate coronary arterial calcifications. MEDIASTINUM: No gross evidence of adenopathy. Fat filled left posterior Bochdalek hernia. VASCULATURE: No aortic aneurysm. Four-vessel aortic arch. MUSCULOSKELETAL: Age-indeterminate nondisplaced left lateral seventh through ninth rib fractures with callus formation and fracture line still visible. Multilevel degenerative changes of the visualized spine. SOFT TISSUES/LYMPH NODES: Unremarkable. LOWER NECK: No significant findings. UPPER ABDOMEN: Postsurgical changes from esophagectomy with gastric pull-through. Large amount of maciel d contents is demonstrated through the gastric pull-through. IMPRESSION: 1. Multifocal patchy groundglass opacities within the right middle and bilateral lower lobes. Finding s are consistent with reported aspiration pneumonitis. 2. Postsurgical changes from esophagectomy and gastric pull-through with large amount of food content is demonstrated within the gastric pull-through. 3. Age-indeterminate nondisplaced left lateral seventh through ninth rib fractures with callus format ion. Fracture lines are still visible. [facility], , 05/24/2024 2:00 PM
== END | disposition home or self-care (01) ==
LOC: RADCTMAIN 13:21
PROVIDERS: ATTEND Family Medicine
DX: J69.0 Pneumonitis due to inhalation of food and vomit
CPT/HCPCS: 71250

== ENCOUNTER → 2024-09-17 | Outpatient (CLI) | payer MEDICARE ==
--- NOTE | 2024-09-17 18:46 | CT ---
EXAMINATION TYPE: CT brain wo con DATE OF EXAM: 09/17/2024 6:19 PM COMPARISON: None. CLINICAL INDICATION: Male, 69 years old with history of R44.3 HALLUCINATIONS, UNSPECIFIED, Having christopher lucinations for 2 weeks. TECHNIQUE: CT of the brain is performed utilizing 3 mm thick sections through the posterior fossa and 3 mm thick sections through the remaining calvarium. Study is performed within 24 hours of arrival to the hospital. Contrast used: mL of , (none if empty) CT DLP: 1214.7 mGycm, Automated exposure control for dose reduction was used. FINDINGS: No abnormal hyperdensity is present to suggest an acute intracranial hemorrhage. No mass lesion is evident. No acute infarcts are evident. Periventricular white matter hypodensity is present, likely on the bas is of chronic white matter ischemic changes. Ventricles and sulci are appropriate for the patient age. Paranasal sinuses and mastoid air cells within the [id number] are clear. IMPRESSION: 1. No acute intracranial process. Follow up MRI can be performed as clinically indicated. 2. Chronic appearing periventricular white matter ischemic type changes. [facility], Workstation: [email or web address], 09/17/2024 6:43 PM
[2024-09-17 20:22] LABS: Amylase 39 U/L (23-121); BUN/Creat Ratio 20.38 Ratio (12.00-20.00); Blood Urea Nitrogen 26.5 mg/dL (9.0-27.0); Carbon Dioxide 22.7 mmol/L (21.6-31.8); Chloride 102 mmol/L (96-109); Glucose 97 mg/dL (70-110); Lipase 35 U/L (14-60); Sodium 138 mmol/L (135-145)
[2024-09-17 20:23] LABS: ALT 39 U/L (10-49); AST 64 U/L (14-35); Albumin 3.7 g/dL (3.8-4.9); Albumin/Globulin Ratio 1.16 Ratio (1.60-3.17); Alkaline Phosphatase 182 U/L (41-126); Calcium 9.1 mg/dL (8.7-10.3); Globulin 3.2 g/dL (1.6-3.3); Magnesium 2.4 mg/dL (1.5-2.4); Total Bilirubin 0.3 mg/dL (0.3-1.2); Total Protein 6.9 g/dL (6.2-8.2)
[2024-09-17 21:06] LABS: Basophils # (A) 0.05 X 10*3/uL (0.00-0.10); Basophils % (A) 0.4 %; Eosinophils # (A) 0.04 X 10*3/uL (0.04-0.35); Eosinophils % (A) 0.3 %; HCT 38.7 % (39.6-50.0); HGB 11.9 g/dL (13.0-17.0); Lymphocytes # (A) 1.23 X 10*3/uL (0.90-5.00); Lymphocytes % (A) 10.6 %; MCH 28.8 pg (27.0-32.0); MCHC 30.7 g/dL (32.0-37.0); MCV 93.7 FL (80.0-97.0); Mean Platelet Volume 10.8 FL (9.5-12.2); Monocytes # (A) 1.46 X 10*3/uL (0.20-1.00); Monocytes % (A) 12.5 %; NRBC Per 100 WBC 0 X 10*3/uL (0.00-0.01); Neutrophils # (A) 8.82 X 10*3/uL (1.80-7.70); Neutrophils % (A) 75.8 %; Platelet Count 420 X 10*3/uL (140-440); RBC 4.13 X 10*6/uL (4.40-5.60); WBC 11.65 X 10*3/uL (4.50-10.00)
[2024-09-17 21:27] LABS: NT-Pro-B-Type Natriuretic Pept 1902 pg/mL (0-125)
== END | disposition home or self-care (01) ==
LOC: RADCTMAIN 16:00
PROVIDERS: ATTEND Family Medicine
DX: I67.82 Cerebral ischemia (principal); R44.3 Hallucinations, unspecified; K92.0 Hematemesis; I50.9 Heart failure, unspecified
CPT/HCPCS: 70450; 80053; 82140; 82150; 82607; 82746; 83690; 83735; 83880; 84588; 85025